=== PATIENT | female | born 2005 | race Hispanic/Latino ===

== ENCOUNTER 2023-12-08 11:30 | Inpatient (IN) | payer MEDICAID, OTHER ==
[~2023-12-08 11:30] MED LIST: Bupivacaine 0.25% HCL 30 ML VIAL ONE; ePHEDrine Sulfate 50 MG/10 ML VIAL ONE
[2023-12-08] MEDS ORDERED: Carboprost 250 MCG/ML AMP IM PRN (12:31)
[2023-12-08] MEDS ORDERED: Ondansetron PF 4 MG/2 ML Vial IVP PRN (12:31)
[2023-12-08] MEDS ORDERED: Acetaminophen 500 MG TAB PO PRN (12:31)
[2023-12-08] MEDS ORDERED: Ibuprofen 800 MG TAB PO PRN (12:31)
[2023-12-08] MEDS ORDERED: hydrALAZINE 20 MG/ML VIAL SLOW IVP PRN (12:31)
[2023-12-08] MEDS ORDERED: Tranexamic Acid 1,000 MG/10 ML VIAL IVP PRN (12:31)
[2023-12-08] MEDS ORDERED: Misoprostol 200 MCG TAB PR PRN (12:31)
[2023-12-08] MEDS ORDERED: Diphenoxylate HCl/Atropine Tablet PO PRN ×2 (12:31)
[2023-12-08] MEDS ORDERED: Lidocaine 1% (PF) 30 ML VIAL SC PRN (12:31)
[2023-12-08] MEDS ORDERED: Docusate 100 MG CAP PO PRN (12:31)
[2023-12-08] MEDS ORDERED: Promethazine HCl 25 MG/ML VIAL IM PRN (12:31)
[2023-12-08] MEDS ORDERED: Oxytocin 30 units/NS 500 ML 500 ML IV SCH (12:45)
[2023-12-08 13:22] LABS: Hematocrit 35.9 % (34.9-44.5); Hemoglobin 12.3 g/dL (12.0-15.5); Mean Corpuscular HGB CONC 34.3 g/dL (32.0-36.0); Mean Corpuscular Hemoglobin 31.2 pg (27.0-33.0); Mean Corpuscular Volume 91.1 fL (81.6-98.3); Mean Platelet Volume 10.9 fL (7.4-10.4); Platelet Count 221 10x3/uL (150-450); RBC Distribution Width 12.5 % (11.5-14.5); Red Blood Cell (RBC) Count 3.94 10x6/uL (3.90-5.03); White Blood Cell (WBC) Count 8.6 10x3/uL (3.5-10.5)
[2023-12-08 13:54] LABS: HBsAg Index 0.22 S/CO (0-0.99); Hep B Surf Ag - L&D Non-Reactive S/CO (NonReactive)
[2023-12-08 13:55] LABS: Syphilis Antibody Nonreactive (Nonreactive); Syphilis Antibody Index 0.04 S/CO (<1.00 Non-Reactive)
[2023-12-08] MEDS: Misoprostol 100 MCG TAB VAG SCH (14:12)
[2023-12-08 15:06] VITALS: BMI 23.1
[2023-12-09] MEDS: fentaNYL 50 mcg/mL 1 mL Vial SLOW IVP PRN (02:52)
[2023-12-09] MEDS: fentaNYL/Ropivacaine Epidural 100 ML ONE (10:39)
[2023-12-09] MEDS ORDERED: Promethazine HCl 25 MG/ML VIAL IM PRN ×2 (10:51→20:16)
[2023-12-09] MEDS ORDERED: ePHEDrine Sulfate 50 MG/10 ML VIAL SLOW IVP PRN (10:51)
[2023-12-09] MEDS ORDERED: Naloxone HCl 0.4 mg/ml Vial IVP PRN ×2 (10:51)
[2023-12-09] MEDS ORDERED: Acetaminophen 325 MG TAB PO PRN (10:51)
[2023-12-09] MEDS ORDERED: diphenhydrAMINE 50 MG/ML VIAL IVP PRN (10:51)
[2023-12-09] MEDS ORDERED: Ondansetron PF 4 MG/2 ML Vial IVP PRN ×2 (10:51→20:16)
[2023-12-09] MEDS ORDERED: Moisturizing Cream (Eucerin) 113 GM JAR TOP PRN (10:51)
[2023-12-09] MEDS ORDERED: Lactated Ringer's 500 ML IV PRN (10:51)
[2023-12-09] MEDS ORDERED: fentaNYL 2 mcg/Ropivacaine 0.2% Epidural 100 ML CADD EPIDURAL SCH (11:00)
[2023-12-09] MEDS ORDERED: ACTIVE EPIDURAL FS SCH (11:00)
[2023-12-09] MEDS: Oxytocin 30 units/NS 500 ML 500 ML IV SCH (14:02)
[2023-12-09] MEDS ORDERED: Misoprostol 200 MCG TAB VAG PRN (20:16)
[2023-12-09] MEDS: Methylergonovine 0.2 MG/ML VIAL IM PRN (20:16)
[2023-12-09] MEDS ORDERED: hydrALAZINE 20 MG/ML VIAL SLOW IVP PRN (20:16)
[2023-12-09] MEDS ORDERED: Milk Of Magnesia 30 ML UDCUP PO PRN (20:16)
[2023-12-09] MEDS ORDERED: Methylergonovine 0.2 MG/ML VIAL IM PRN (20:16)
[2023-12-09] MEDS ORDERED: Bisacodyl 10 MG SUPP PR PRN (20:16)
[2023-12-09] MEDS ORDERED: Oxytocin 30 units/NS 500 ML 500 ML IV SCH (20:30)
[2023-12-09] MEDS: Docusate 100 MG CAP PO SCH (22:57)
[2023-12-09] MEDS: Ibuprofen 800 MG TAB PO SCH (22:57)
[2023-12-10] MEDS: Boostrix 0.5 ML (Tdap) VIAL (>/=7 yrs of age) IM ONE (07:57)
[2023-12-10] MEDS: Prenatal Vitamin 1 TAB PO SCH (09:27)
[2023-12-10] MEDS: Ferrous Sulfate 325 MG TAB PO SCH (18:40)
[2023-12-11 11:42] VITALS: BP 105/55; TEMP 97.7
== END 2023-12-11 15:30 | disposition home or self-care (01) | DRG 807 ==
LOC: CSHLD/OP 11:30 → CSHLD 12:31 → CSHPP 12-09 22:30
PROVIDERS: ADMIT Emergency Medicine; ATTEND Emergency Medicine
PROC: 10E0XZZ Delivery of Products of Conception, External Approach (ICD-10-PCS; principal; 2023-12-09)
PROC: 0KQM0ZZ Repair Perineum Muscle, Open Approach (ICD-10-PCS; 2023-12-09)
PROC: 10907ZC Drainage of Amniotic Fluid, Therapeutic from Products of Conception, Via Natural or Artificial Opening (ICD-10-PCS; 2023-12-09)
DX: O36.8130 Decreased fetal movements, third trimester, not applicable or unspecified (principal); Z37.0 Single live birth; Z3A.37 37 weeks gestation of pregnancy; D64.9 Anemia, unspecified; O24.420 Gestational diabetes mellitus in childbirth, diet controlled; O99.02 Anemia complicating childbirth; K21.9 Gastro-esophageal reflux disease without esophagitis; O71.4 Obstetric high vaginal laceration alone; O62.2 Other uterine inertia; O32.8XX0 Maternal care for other malpresentation of fetus, not applicable or unspecified
CPT/HCPCS: 36415; 36416; 51702; 85027; 86780; 86850; 86900; 86901; 87340; 88307; J0665; J2210; J2590; J3010